=== PATIENT | male | born 1960 | race Caucasian/White ===

== ENCOUNTER 2022-09-20 09:27 | Day surgery (SDC) | payer BC ==
[~2022-09-20 09:27] MED LIST: Propofol 200 MG/20 ML SDV ONE
[2022-09-20] MEDS ORDERED: Lactated Ringers 1,000 ML IV SCH (09:30)
[2022-09-20] MEDS ORDERED: Sodium Chloride 0.9% 10 ML Syringe FLUSH PRN (09:30)
== END 2022-09-20 12:50 | disposition home or self-care (01) ==
LOC: LL.SDS 09:27
PROVIDERS: ATTEND Surgery
DX: Z12.11 Encounter for screening for malignant neoplasm of colon (principal); D12.0 Benign neoplasm of cecum; G47.33 Obstructive sleep apnea (adult) (pediatric); R73.03 Prediabetes; I10 Essential (primary) hypertension; E78.5 Hyperlipidemia, unspecified; K21.9 Gastro-esophageal reflux disease without esophagitis; G43.909 Migraine, unspecified, not intractable, without status migrainosus; M1A.00X0 Idiopathic chronic gout, unspecified site, without tophus (tophi); N40.1 Benign prostatic hyperplasia with lower urinary tract symptoms; E66.9 Obesity, unspecified; Z68.35 Body mass index [BMI] 35.0-35.9, adult; Z79.899 Other long term (current) drug therapy
CPT/HCPCS: 45380; J2704; J7120